=== PATIENT | male | born 1960 | race Caucasian/White ===

== ENCOUNTER → 2018-01-10 | Outpatient (REF) ==
[~2018-01-10] MED LIST: BENA40TA51 PO; CRAN200C5 PO; DOC100 PO; IBU600 PO; MULT-1335 PO; PER PO
--- NOTE | 2018-01-10 11:07 | RADIOLOGY IMAGING REPORT ---
FACILITY: [facility] PATIENT NAME: Dallin Swenson : 1960 MR: [id number] V: [id number] EXAM DATE: ORDERING PHYSICIAN: DWAYNE OSHEA TECHNOLOGIST[place] [facility] [place] : 1960 Visit/Account:[id number] Date of Sevice: 01/10/2018 Exam type: KNEE 3 VIEW RIGHT History: Right knee pain past few weeks Comparison: None. Findings: Three views of the right knee reveal mild to moderate narrowing of the medial compartment with margin al spurring. Mild to moderate narrowing with marginal spurring also noted at the patellofemoral join t. There is no evidence of acute fracture or dislocation or lytic or blastic bone lesion. IMPRESSION: 1. 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
== END ==
LOC: RAD 09:51
PROVIDERS: ATTEND Nurse Practitioner
DX: M25.561 Pain in right knee (principal)

== ENCOUNTER 2018-10-17 07:00 | Day surgery (SDC) | payer OTHER ==
[~2018-10-17] VITALS: Ht 177.8 cm; Wt 96.2 kg
[~2018-10-17 07:00] MED LIST changes: +ASPI81TA94 PO; +ATR80PT PO; +CHOL10005 PO; +INSU100V8 SQ; +LISI-362 PO; +METF-450 PO
[2018-10-17] MEDS ORDERED: PROPOFOL EMUL(*) 10MG/ML 20 ML 40 ML ONE (09:14)
[2018-10-17] MEDS ORDERED: LIDOCAINE MPF 1% 5 ML VIAL ONE (09:14)
[2018-10-17 10:26] VITALS: BP 137/94
[2018-10-17] MEDS ORDERED: NORMOSOL R SOLN(*) 1000 ML BAG 1,000 ML IV PRN (10:40)
[2018-10-17] MEDS ORDERED: LIDOCAINE/SOD BICARB 8.4% SYR ID ONE (10:40)
[2018-10-17 11:43] VITALS: BP 88/59
--- NOTE | 2018-10-17 11:59 | Short(Outpt) Discharge Summary ---
Discharge Summary Reason for Hosp/Final Diag: (1) Family history of colon cancer in father Hospital Course & Plan: Colonoscopy completed without problems. No polyps or cancer seen but there was still solid and semi-solid stool in colon, not an adequate bowel prep to consider this a good screening study. I recommend that he undergo another colonoscopy in the next 1-3 years with Emilee for his bowel prep. Departure Discharge to: Home, Self Care Discharge Instructions Home Meds Reported Medications Aspirin (ASPIRIN) 81 Mg Tab.chew, 81 MG PO QDAY, TAB.CHEW 10/10/18 Cholecalciferol (Vitamin D3) (VITAMIN D3) Unknown Strength Tablet, PO, TAB 09/28/18 Atorvastatin (LIPITOR) Unknown Strength Tab, 80 MG PO QDAY, TAB 09/28/18 Lisinopril (LISINOPRIL) Unknown Strength Tablet, 40 MG PO QDAY, TAB 09/28/18 Metformin Hcl (METFORMIN HCL) Unknown Strength Tablet, 1000 MG PO BID, TAB 09/28/18 Insulin Degludec (Tresiba) Unknown Strength Vial, 71 UNITS SQ DAILY 09/28/18 Multivitamins W-Minerals (Multiple Vitamin) 1 Tab Tablet, 1 TAB PO DAILY, 0 Refills 12/08/10 Diet: Regular Activity: As Tolerated Special Instructions: Your colonoscopy was completed without problems but unfortunately your bowel prep wasn't great, there was even solid stool still left in your colon. I didn't find any polyps or cancer in your colon but I couldn't adequately see about 20% of your colon. Because of this, and because of your family history, I recommend that you have another colonoscopy in the next 1 to 3 years with a different, stronger, bowel prep. KAYLAH ELLISON MD Oct 17, 2018 11:59
[2018-10-17 12:00] VITALS: BP 101/70
[2018-10-17 12:28] VITALS: BP 137/96
--- NOTE | 2018-10-17 13:54 | NUR ---
1143- PT. RECEIVED FROM THE OR VIA STRETCHER WITH THE SIDERAILS UP. SBAR RECEIVED FROM NIYAH ROUSE AND DR. SNYDER. SEE ADMISSION ASSESSMENT. 1205- PT. NOW AWAKE AND ALERT. 1217- RETURNED PT. TO ROOM AIR. 1228- PT. STATES THAT HE IS READY TO GO HOME SO ORTHOSTATICS PREFORMED. 1235- PT. GETTING DRESSED. 1240- DISCHARGE INSTRUCTIONS GONE OVER WITH PT. 1243- IV TAKEN OUT 1245- I ACCOMPANIED PT. OUT TO HIS FRIEND THAT WAS COMING TO PICK HIM UP.
== END 2018-10-17 12:45 | disposition home or self-care (01) ==
LOC: OR 07:00
PROVIDERS: ATTEND Surgery
DX: Z12.11 Encounter for screening for malignant neoplasm of colon (principal); Z80.0 Family history of malignant neoplasm of digestive organs; E11.9 Type 2 diabetes mellitus without complications; I10 Essential (primary) hypertension
CPT/HCPCS: 00812; 36416; 45378; 82948; J2001; J2704